=== PATIENT | female | born 1995 | race African-American/Black ===

== ENCOUNTER 2016-08-17 19:58 | Emergency (ER) | payer BC ==
[2016-08-17] MEDS ORDERED: Cyclobenzaprine TAB* 10 MG PO ONE (21:22)
[2016-08-17] MEDS ORDERED: Ketorolac INJ* 60 MG/2 ML VIAL IM ONE (21:22)
--- NOTE | 2016-08-17 22:03 | ED ---
Back Pain - HPI Summary HPI Summary: Patient presents with low back pain that began two days ago after stretching. She can not relate this to any known trauma or change in activity, other than stretching. She has had pain like this before when she "pulled a muscle". She denies N/T, incontinence of urine or stool, or inability to ambulate. - History of Current Complaint Chief Complaint: EDBackInjuryPain Stated Complaint: BACK PAIN Time Seen by Provider: 08/17/16 20:53 Hx Obtained From: Patient Hx Last Menstrual Period: 4 MOS AGO (HAS PCOS) Onset/Duration: Gradual Onset Onset/Duration: Started Days Ago Timing: Constant Back Pain Location: Is Discrete @ - bilateral low back Severity Initially: Moderate Severity Currently: Severe Pain Intensity: 10 Character: Dull, Aching, Spasmodic Aggravating Symptom(s): Movement Alleviating Symptom(s): Position Associated Signs And Symptoms: Positive: Pain with Weight Bearing Related History: Previous Back Injury - Allergies/Home Medications Allergies/Adverse Reactions: Allergies Allergy/AdvReac Type Severity Reaction Status Date / Time No Known Allergies Allergy Verified 08/17/16 20:07 PMH/Surg Hx/FS Hx/Imm Hx Endocrine/Hematology History: Reports: Hx Diabetes - PRE-DIABETES HX Denies: Hx Thyroid Disease Cardiovascular History: Denies: Hx Hypertension Respiratory History: Reports: Hx Asthma Denies: Hx Chronic Obstructive Pulmonary Disease (COPD) GI History: Denies: Hx Ulcer History: Reports: Other Problems/Disorders - PCOS Psychiatric History: Denies: Hx Eating Disorder, Hx of Violent Episodes Against Others Infectious Disease History: No Infectious Disease History: Denies: Hx Hepatitis, Hx Human Immunodeficiency Virus (HIV), Traveled Outside the [place] in Last 30 Days - Family History Known Family History: Positive: None - Social History Occupation: Employed Part-time Lives: With Family Alcohol Use: Occasionally Substance Use Type: Reports: Marijuana Smoking Status (MU): Current Every Day Smoker Type: Cigarettes Amount Used/How Often: 1/4 PPD Cessation Counseling: Patient Advised to Stop Review of Systems Positive: Myalgia. Negative: Edema Positive: Bruising Negative: Weakness, Paresthesia All Other Systems Reviewed And Are Negative: Yes Physical Exam Triage Information Reviewed: Yes Vital Signs On Initial Exam: Initial Vitals Temp Pulse Resp BP Pulse Ox 97.9 F 100 19 159/86 100 08/17/16 20:05 08/17/16 20:05 04/04/17 20:05 08/17/16 20:05 08/17/16 20:05 Vital Signs Reviewed: Yes Appearance: Positive: Well-Appearing, Pain Distress, Obese Skin: Positive: Warm, Skin Color Reflects Adequate Perfusion, Dry Head/Face: Positive: Normal Head/Face Inspection Eyes: Positive: EOMI, ANGEL, Conjunctiva Clear ENT: Positive: Hearing grossly normal Neck: Positive: Supple, Nontender Respiratory/Lung Sounds: Positive: Breath Sounds Present Cardiovascular: Positive: RRR Musculoskeletal: Positive: Strength/ROM Intact, Pain @ - TTP bilateral lumbar muscles; non-tender lumbar spine Neurological: Positive: Sensory/Motor Intact, Alert, Oriented to Person Place, Time, [place] Bundle Intact Distally, Normal Gait Psychiatric: Positive: Affect/Mood Appropriate AVPU Assessment: Alert - [place] Coma Scale Coma Scale Total: 15 Diagnostics - Vital Signs Vital Signs Temp Pulse Resp BP Pulse Ox 08/17/16 20:05 97.9 F 100 19 159/86 100 - Laboratory Lab Statement: Any lab studies that have been ordered have been reviewed, and results considered in the medical decision making process. Re-Evaluation - Re-Evaluation First Eval Re-Evaluation Time: 22:20 Change: Improved - Patient's pain has decreased Back Pain Course/Dx - Diagnoses Differential Diagnosis/HQI/PQRI: Positive: Cauda Equina Syndrome, Compressive Cord Syndrome, Herniated Disc, Strain, Sprain Provider Diagnoses: Low back strain Discharge - Discharge Plan Condition: Stable Disposition: HOME Prescriptions: Cyclobenzaprine TAB* [Flexeril 10 MG TAB*] 10 mg PO TID PRN #15 tab PRN Reason: Pain Patient Education Materials: Low Back Strain (ED) Referrals: Hector Johnson MD [Primary Care Provider] - Additional Instructions: Please begin using ibuprofen 600mg three times daily with meals tomorrow evening for the next 3-5 days to decrease pain. Rest and use heat on your back to allow your pain to improve. Follow-up with your primary care provider in 2-3 days if symptoms persist.
[2016-08-17 22:53] VITALS: BP 146/72
== END 2016-08-17 22:52 | disposition home or self-care (01) ==
LOC: ED 19:58
DX: S39.012A Strain of muscle, fascia and tendon of lower back, initial encounter (principal); M54.5 Low back pain; M79.1 Myalgia; F17.210 Nicotine dependence, cigarettes, uncomplicated; X58.XXXA Exposure to other specified factors, initial encounter; Y93.9 Activity, unspecified; Y92.9 Unspecified place or not applicable
CPT/HCPCS: 96372; 99282; A9270-GY; J1885

== ENCOUNTER 2017-05-30 11:50 | Emergency (ER) | payer BC ==
--- NOTE | 2017-05-30 15:43 | ED ---
Throat Pain/Nasal Congestion - History of Current Complaint Chief Complaint: EDThroatPain Time Seen by Provider: 05/30/17 12:26 - Allergies/Home Medications Allergies/Adverse Reactions: Allergies Allergy/AdvReac Type Severity Reaction Status Date / Time No Known Allergies Allergy Verified 08/17/16 20:07 PMH/Surg Hx/FS Hx/Imm Hx Endocrine/Hematology History: Reports: Hx Diabetes - PRE-DIABETES HX Denies: Hx Thyroid Disease Cardiovascular History: Denies: Hx Hypertension Respiratory History: Reports: Hx Asthma Denies: Hx Chronic Obstructive Pulmonary Disease (COPD) GI History: Denies: Hx Ulcer History: Reports: Other Problems/Disorders - PCOS Psychiatric History: Denies: Hx Eating Disorder, Hx of Violent Episodes Against Others Infectious Disease History: Unable to Obtain/Confirm Infectious Disease History: Denies: Hx Hepatitis, Hx Human Immunodeficiency Virus (HIV), Traveled Outside the [place] in Last 30 Days - Family History Known Family History: Positive: None - Social History Alcohol Use: None Substance Use Type: Reports: None Smoking Status (MU): Former Smoker Type: Cigarettes Amount Used/How Often: 1/4 PPD Physical Exam Vital Signs On Initial Exam: Initial Vitals Temp Pulse Resp BP Pulse Ox 98.4 F 100 17 149/77 100 05/30/17 11:55 05/30/17 11:55 05/30/17 11:55 05/30/17 11:55 05/30/17 11:55 - [place] Coma Scale Coma Scale Total: 15 Diagnostics - Vital Signs Vital Signs Temp Pulse Resp BP Pulse Ox 05/30/17 11:55 98.4 F 100 17 149/77 100 - Laboratory Lab Results: Lab Results 05/30/17 Range/Units 12:57 Group A Strep Rapid Negative (Negative) Lab Statement: Any lab studies that have been ordered have been reviewed, and results considered in the medical decision making process. EENT Course/Dx - Diagnoses Provider Diagnoses: Tonsillitis Discharge - Discharge Plan Condition: Stable Disposition: HOME Patient Education Materials: Tonsillitis (ED) Referrals: Non Staff,Doctor [Primary Care Provider] - Additional Instructions: Take prescribed medication as directed. Wait to take antibiotics for atleast 3-5 days. If symptoms persist or worsen you may take antibiotics. continue chloraseptic spray, salt water swishes, and ibuprofen. Increase vitamins and fluids. Follow up PCP. Any new or worsening symptoms please seek medical attention.
[2017-05-30 15:57] VITALS: BP 129/72
== END 2017-05-30 15:56 | disposition home or self-care (01) ==
LOC: ED 11:50
DX: J03.90 Acute tonsillitis, unspecified (principal); Z87.891 Personal history of nicotine dependence
CPT/HCPCS: 87651; 99282